=== PATIENT | female | born 1995 | race Caucasian/White ===

== ENCOUNTER 2020-05-21 12:10 | Outpatient (REF) | payer OTHER, SELFPAY ==
[2020-05-21 13:15] LABS: MANUAL DIFF FLAG NO
[2020-05-21 13:18] LABS: Basophils Absolute Auto 0.1 X10*3/uL (0.0-0.2); Basophils Percent Auto 0.6 % (0-2); Eosinophils Absolute Auto 0.3 X10*3/uL (0.0-0.4); Eosinophils Percent Auto 3.1 % (0-4); Hematocrit 38.9 % (37-47); Hemoglobin 12.4 g/dl (12.0-16.0); Imm Gran Abs Auto 0.07 X10*3/uL (0.00-0.03); Imm Gran Pct Auto 0.8 % (0.0-0.4); Lymphocytes Absolute Auto 2.3 X10*3/uL (1.2-4.9); Lymphocytes Percent Auto 26.5 % (20-40); Mean Corpuscular HGB Conc 31.9 g/dl (31.0-35.0); Mean Corpuscular Hemoglobin 28.4 pg (27.0-33.0); Mean Corpuscular Volume 89.2 fL (80-98); Monocytes Absolute Auto 0.7 X10*3/uL (0.1-1.2); Monocytes Percent Auto 7.9 % (2-11); Neutrophils Absolute Auto 5.3 X10*3/uL (2.0-8.3); Neutrophils Percent Auto 61.1 % (45-73); Platelet Count 379 X10*3/uL (160-400); Red Blood Count 4.36 X10*6/uL (4.20-5.50); Red Cell Distribution Width 12.8 % (11.0-16.0); White Blood Count 8.6 X10*3/uL (4.8-10.8)
[2020-05-21 13:42] LABS: Blood Urea Nitrogen 6 mg/dL (9-16); Calcium 9.2 mg/dL (8.4-10.2); Cholesterol 184 mg/dL; Estimated Glomerular Filt Rate > 60; Glucose Fasting 74 mg/dL (60-99); HDL Cholesterol 48 mg/dL; LDL Cholesterol Calculated 116 mg/dl; Triglycerides 104 mg/dL
[2020-05-21 13:52] LABS: Anion Gap 11 (12-20); Carbon Dioxide 29 mmol/L (22-29); Chloride 103 mmol/L (96-108); Potassium 4.4 mmol/l (3.3-5.1); Sodium 139 mmol/L (135-145)
[2020-05-21 14:34] LABS: Reflex LDLD? No
== END 2020-05-21 12:11 | disposition home or self-care (01) ==
LOC: HO.LAB 12:10
PROVIDERS: PCP Internal Medicine; Visit Provider Nurse Practitioner Family
DX: G35 Multiple sclerosis (principal)
CPT/HCPCS: 36415; 80048; 80061; 85025

== ENCOUNTER 2022-02-26 09:33 | Outpatient (REF) | payer OTHER, SELFPAY ==
[2022-02-26 15:41] LABS: CT PCR NOT DETECTED (Not Detect.); NG PCR NOT DETECTED (Not Detect.)
[2022-02-27 09:25] LABS: BV Int Neg Control Negative (Negative); BV Int Pos Control Positive (Positive)
== END 2022-02-26 09:34 | disposition home or self-care (01) ==
LOC: HO.LAB 09:33
PROVIDERS: PCP Nurse Practitioner Family; Visit Provider Advanced Practice Midwife
DX: Z01.419 Encounter for gynecological examination (general) (routine) without abnormal findings (principal); N89.8 Other specified noninflammatory disorders of vagina; Z20.2 Contact with and (suspected) exposure to infections with a predominantly sexual mode of transmission; Z72.0 Tobacco use
CPT/HCPCS: 81025; 87480; 87491; 87510; 87591; 87660; 88142

== ENCOUNTER 2022-08-12 08:21 | Outpatient (REF) | payer OTHER, SELFPAY ==
--- NOTE | ~2022-08-12 | XR_ITS ---
EXAMINATION: XR THORACIC SPINE CLINICAL INFORMATION: Pain COMPARISON: None TECHNIQUE: 3 views of the thoracic spine were obtained. FINDINGS: Bone alignment is normal. No fracture or dislocation. Right cervical rib. Normal disc spaces. Normal paraspinal soft tissues. XR/XR thoracic spine 3V IMPRESSION: Right cervical rib otherwise unremarkable exam.
[2022-08-12 08:27] LABS: MANUAL DIFF FLAG NO
[2022-08-12 08:40] LABS: Basophils Percent Auto 0.4 % (0-2); Eosinophils Absolute Auto 0.2 X10*3/uL (0.0-0.4); Eosinophils Percent Auto 2.2 % (0-4); Hematocrit 39.1 % (37.0-47.0); Hemoglobin 12.6 g/dl (12.0-16.0); Imm Gran Abs Auto 0.03 X10*3/uL (0.00-0.03); Imm Gran Pct Auto 0.4 % (0.0-0.4); Lymphocytes Absolute Auto 2.1 X10*3/uL (1.2-4.9); Lymphocytes Percent Auto 28.8 % (20-40); Mean Corpuscular HGB Conc 32.2 g/dl (31.0-35.0); Mean Corpuscular Volume 89.9 fL (80.0-98.0); Mean Platelet Volume 9.3 fL (9.4-12.3); Monocytes Absolute Auto 0.5 X10*3/uL (0.1-1.2); Monocytes Percent Auto 6.4 % (2-11); Neutrophils Absolute Auto 4.6 x10*3/uL (2.0-8.3); Neutrophils Percent Auto 61.8 % (45-73); Platelet Count 343 X10*3/uL (160-400); Red Blood Count 4.35 X10*6/uL (4.20-5.50); Red Cell Distribution Width 12.5 % (11.0-16.0); White Blood Count 7.4 X10*3/uL (4.8-10.8)
[2022-08-12 09:24] LABS: Alanine Aminotransferase 21 U/L (0-31); Albumin Level 4.2 g/dL (3.5-5.0); Alkaline Phosphatase 127 U/L (39-117); Anion Gap 11 (12-20); Aspartate Amino Transferase 15 U/L (5-31); Bilirubin Total 0.2 mg/dL (0.0-1.0); Blood Urea Nitrogen 8 mg/dL (9-16); Calcium 9.3 mg/dL (8.4-10.2); Carbon Dioxide 26 mmol/L (22-29); Chloride 105 mmol/L (96-108); Cholesterol 173 mg/dL; Estimated Glomerular Filt Rate > 60; Glucose Fasting 97 mg/dL (60-99); HDL Cholesterol 33 mg/dL; LDL Cholesterol Calculated 119 mg/dl; Potassium 4.4 mmol/L (3.3-5.1); Sodium 138 mmol/L (135-145); TSH reflex Free T4 1.59 uIU/mL (0.32-4.0); Total Protein 7.1 g/dL (6.5-8.0); Triglycerides 108 mg/dL; Vitamin D 25-OH Total 31.8 ng/mL (>30)
== END 2022-08-12 08:22 | disposition home or self-care (01) ==
LOC: HO.LAB 08:21
PROVIDERS: PCP Nurse Practitioner Family; Visit Provider Nurse Practitioner Family
DX: Z00.00 Encounter for general adult medical examination without abnormal findings (principal); M54.6 Pain in thoracic spine
CPT/HCPCS: 36415; 72072; 80053; 80061; 82306; 84443; 85025

== ENCOUNTER 2022-09-17 13:00 | Outpatient (RCR) | payer OTHER, SELFPAY ==
[2022-09-04 10:05] VITALS: BP 110/64; PULSE 74; O2SAT 98
--- NOTE | 2022-09-04 14:57 | MHC.PT.EP ---
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 Sharpe / next follow up slated for November with report of gabapentin), obesity, auditory hallucinations, anxiety, and depression (in care of psychiatry) referred to PT from Mayi Wilson PCP provider following a physical/establishing care as a new patient. Pt expresses history of R sided upper back pain which has been present since patient was in high school. Pt expressing parathesias and numbness of her R upper scapular region with report of intermittent weakness and report of both of her arms falling down by her side and giving out. Pt also reported medical history of including bradycardia, history of seizures, and report of heart murmur (which she said she failed to inform her new PCP about during her recent physical). Pt also reports history of blacking out, bouts of vision loss and overt standing weakness which makes her feel unsteady which pt she states happens on average 3x/weekly. She reports (+) history of falls related to these episodes. Pt would benefit from attending skilled PT services to address a gentle periscapular and cervical>core stabilization program to address impairments of thoracic and lower back pain. Pt expresses history of bilateral knee pain and weakness of legs being noodle legs . Pt was educated re: activity modification to ease her fatigue as she reports low thresh-hold for tasks around the house . Pt currently working wholesale parts salesperson in a [employer] shop (/Thu/Thu/Sun) and reports difficulty working her wholesale parts salesperson status due to fatigue. She expresses she lives with her sister and her boyfriend who have witnessed both episodes of her seizures and her arms giving out/falls. Pt expressed she recently applied for disability benefits due to her MS and was denied. Pt has global deconditioning, poor posture with increased thoracic kyphosis, and expressed goals of improving strength, posture, endurance, and weight loss. If in agreement please sign off on plan of care which will address her bilateral knee pain as well as her back pain during her therapy at a frequency of 2x/week x 4-6 weeks. Thank you for this referral. Pt demonstrates excellent rehab potential and is motivated for recovery. Frequency and Duration: The patient will be seen 2x/week x 4-6 weeks Short Term Goals: 1. Initiate HEP. 2. Reduce back pain by 25%. 3. Complete SLR with good strength B LE. 4. Demonstrate good functional squat with 3L3 trials. 5. Strength L>R lower trap to 4/5. (IR 3-/5). Care Home Goals: 1. I HEP. 2. Improve back pain by 75% with home program and good mechanics. 3. Pt will demonstrate good awareness of posture in regard to ADLS/IADLS. 4. Strength erector spinae to improve by one strength grade. (IR: unable to maintain erect posture in sitting). 5. Demonstrate good body mechanics for lifting 10# from floor to waist. Treatment Plan: Modalities to reduce pain, spasms and effusion. Manual therapy to restore motion and function. Therapeutic exercise to improve strength and flexibility. Neuromuscular re-education for posture and balance. Therapeutic activities to return to functional activities of daily living. Electronically signed by: Shannon Welsh, PT, DPT Please sign and return to therapist. Thank you for your referral.
== END 2023-01-01 14:55 | disposition home or self-care (01) ==
LOC: HO.PTWFD 13:00
PROVIDERS: PCP Nurse Practitioner Family; Visit Provider Nurse Practitioner Family
DX: M54.6 Pain in thoracic spine (principal)
CPT/HCPCS: 97110; 97140; 97162; 97530

== ENCOUNTER 2023-04-29 16:14 | Outpatient (AMB) | payer OTHER, SELFPAY ==
[2023-04-29 16:18] VITALS: BP 122/80; PULSE 74; O2SAT 98; BMI 38.7
--- NOTE | 2023-04-29 16:18 | MHC.PC.OV ---
Vital Signs 04/29/23 16:18 Height 5 ft 1 in Weight 205 lb BMI 38.7 BP 122/80 Blood Pressure Location Lt brachial Position Sitting Pulse 74 Pulse Source Pulse Oximeter Temp Source Skin Pulse Oximetry (%) 98 Oxygen Delivery Method Room Air Intake Visit Reasons: F/u on thoracic back pain Instrumentation Chemist Required: No Allergies methylprednisolone [From Solu-Medrol] Allergy (Unknown, Verified 04/29/23 16:49) TIGHTNESS/SWELLING OF LIPS AND THROAT penicillin V Allergy (Unknown, Verified 04/29/23 16:49) rash Penicillins [PENICILLINS] Allergy (Unknown, Verified 04/29/23 16:49) SWELLING Medication List - Last Reconciled 04/29/23 by HAO Werner bupropion HCl 300 mg PO QAM diclofenac sodium 1% (Arthritis Pain (diclofenac)) 2 grams topical QID PRN gabapentin 300 mg PO DAILY hydroxyzine HCl 50 mg PO BID multivitamin (One Daily Multivitamin tablet) 1 tab PO DAILY oxcarbazepine 300 mg PO BID oxcarbazepine 600 mg PO BID perphenazine 8 mg PO BEDTIME trazodone 100 mg PO BEDTIME Tobacco use date assessed: 04/29/23 Dental Screening Dental Screen Date: 04/29/23 Did you have a dental visit in the last 12 months?: No Did you have a dental problem in the last 6 months where you did not have access to dental care?: No HPI F/u on thoracic back pain HPI Details Patient is a 27-year-old female who presents today for a routine follow-up. Medical history significant for right-sided thoracic back pain - patient reports this have resolved, auditory hallucination, depression with anxiety, obesity, and MS-followed by Dr. Sharpe on gabapentin. Mental health conditions are followed by Psychiatry, patient is on a waiting list for therapist. Patient reports that lately she has been more depressed, low appetite and she lost weight - will check blood work. Patient also reports that she started with memory issues, she reports hard time remembering what she did 3 days ago, patient also reports that child memories are going away-she will call neurology for an appointment. Patient denies SI. She lives with her boyfriend and his sister. Patient reports intermittent left low back pain, denies injury, denies changes in bowel/bladder, no numbness or tingling, reports diclofenac cream helps. Patient denies shortness of breath or chest pain. [facility] Medical History Depression with anxiety Encounter to establish care Obesity Multiple sclerosis Surgical History EP (ectopic ) History of laparoscopic cholecystectomy Family History Father Lung cancer Stomach cancer Mother No problems noted. Daughter In good health Brother In good health Sister In good health Social History Housing: Apartment Alcohol intake: current Alcohol intake frequency: holidays/special occasions only Patient Tobacco Use Status: Current everyday Tobacco user Tobacco use type: Cigarette Cigarette Packs Per Day: 0.5 Cigarettes Per Day: 10 Years Smoked: 10 year Packs Per Year: 0 Packs per year/per ci.00 e-Cigarette/Vaping Use: Former Use Substance Use Type: Marijuana service: No Current occupational status: employed Sexual orientation: Straight/Heterosexual Gender identity: Female Cognitive needs: No Hearing needs: No Vision needs: No Questionnaire Thrive Questionnaire Date Thrive assessed: 10/29/22 AUDIT C Alcohol Use Questionnaire (AUDIT-C) 1. How often do you have a drink containing alcohol?: Never 3. How often do you have six or more drinks on one occasion?: Never Total Score: 0 Score Reviewed/Action Taken: No DILLON-7 AMB Questionnaire DILLON-7 Date DILLON - 7 assessed: 07/30/22 Source: Developed by Drs. Deejay Soriano, Miladis Sagastume, Alexandre Manzano and colleagues, with an educational fadumo from [employer]. Review of Systems Const Denies body aches, Denies chills, Denies fever(s) and Denies headache(s) Eyes Denies change in vision ENT Denies dizziness, Denies otalgia, Denies headache(s), Denies nasal discharge, Denies sinus pain and Denies sore throat Card Denies chest pain, Denies edema, Denies lightheadedness and Denies dyspnea Resp Denies cough and Denies dyspnea GI Denies constipation, Denies diarrhea, Denies nausea and Denies vomiting Denies dysuria Musc Reports back pain, Denies myalgias, Denies arthralgias and Denies joint swelling Skin/Breast Denies lesions and Denies rash Neuro Denies dizziness and Denies headache(s) Physical exam (Primary Care) Vital Signs: Last Vital Signs Pulse 74 04/29/23 16:18 BP 122/80 04/29/23 16:18 Pulse Ox 98 04/29/23 16:18 Oxygen Delivery Method Room Air 04/29/23 16:18 BMI result Body Mass Index 38.7 Tobacco/Smoking Status: Tobacco use Status Tobacco use date assessed 04/29/23 04/29/23 16:19 Patient Tobacco Use Status Current everyday Tobacco 04/29/23 16:19 Tobacco use type Cigarette 04/29/23 16:19 e-Cigarette/Vaping Use Former Use 04/29/23 16:19 Thrive Assessment: Date of Thrive Assessment Date Thrive assessed 10/29/22 04/29/23 16:19 Const General: cooperative and no acute distress Orientation/consciousness: patient oriented x3 HENMT Head: Yes normocephalic and Yes atraumatic Face and sinus: Yes sinuses nontender Mouth: oropharynx normal and moist mucous membranes Throat: Yes posterior oropharynx normal Eyes General: appearance normal, both eyes and all related structures Pupils: Equal, round and reactive pupils present Neck Neck: Yes normal visual inspection, Yes full ROM and Yes no lymphadenopathy Resp Effort & Inspection: normal respiratory effort and able to speak in complete sentences Auscultation: clear to auscultation bilaterally, no crackles, no rales, no rhonchi and no wheezes Cardio Rate: regular rate Rhythm: regular rhythm Heart sounds: S1 normal heart sound present and S2 normal heart sound present GI Auscultation: normal bowel sounds Skin General skin exam: no rashes or lesions noted Neuro General: patient oriented x3 Cranial nerves: Yes Equal, round and reactive pupils present Gait exam (Neuro): Normal gait present Extrem General: Yes full ROM and No edema Assessment and Plan Assessment & Plan (1) Auditory hallucination: Code(s): R44.0 - Auditory hallucinations Plan: Continue to follow-up with Psychiatry Dr. Miller at [facility] - continue current treatment as prescribed by Psychiatry Patient is on a waiting list for therapist Patient reports that she has crisis phone number (2) Depression with anxiety: Code(s): F41.8 - Other specified anxiety disorders Plan: Same as above (3) Obesity: Code(s): E66.9 - Obesity, unspecified Qualifiers: Obesity type: unspecified obesity type Obesity classification: adult class 3 (BMI >= 40) Serious obesity comorbidity presence: without serious comorbidity Body mass index: BMI 40.0-44.9 Qualified Code(s): E66.01 - Morbid (severe) obesity due to excess calories; Z68.41 - Body mass index [BMI] 40.0-44.9, adult; Z68.41 - Body mass index [BMI] 40.0-44.9, adult Plan: Healthy food choices and exercise as tolerated (4) Multiple sclerosis: Code(s): G35 - Multiple sclerosis Plan: Continue to follow-up with neurology Dr. Sharpe-on gabapentin (5) Low back pain: Code(s): M54.50 - Low back pain, unspecified Plan: Patient is to continue diclofenac cream p.r.n. Patient declined physical therapy referral Encouraged heat/cold packs p.r.n. Plan Patient reports that nurse comes every day to give her medications Keep appointment with PCP as scheduled or follow-up sooner as needed Orders: Orders Vitamin D 25-OH Total Today F41.8 - Other specified anxiety disorders TSH reflex Free T4 Today F41.8 - Other specified anxiety disorders Comprehensive Met. Panel Today F41.8 - Other specified anxiety disorders Complete Blood Count no Diff Today F41.8 - Other specified anxiety disorders Vitamin B12 and Folate Today F41.8 - Other specified anxiety disorders Medications: Refilled diclofenac sodium 1% (Arthritis Pain (diclofenac)) 2 grams topical QID PRN 100 grams 0RF pain M54.6 - Pain in thoracic spine Coding Level of Care Code Est Pt Level 3 (06576) Diagnoses Auditory hallucination R44.0 Depression with anxiety F41.8 Class 3 severe obesity without serious comorbidity with body mass index (BMI) of 40.0 to 44.9 in adult, unspecified obesity type E66.01; Z68.41; Z68.41 Obesity type: unspecified obesity type Obesity classification: adult class 3 (BMI >= 40) Serious obesity comorbidity presence: without serious comorbidity Body mass index: BMI 40.0-44.9 Multiple sclerosis G35 Low back pain M54.50
== END 2023-04-29 17:09 | disposition home or self-care (01) ==
PROVIDERS: PCP Nurse Practitioner Family; Visit Provider Nurse Practitioner Family
DX: R44.0 Auditory hallucinations (principal); F41.8 Other specified anxiety disorders; E66.01 Morbid (severe) obesity due to excess calories; Z68.41 Body mass index [BMI] 40.0-44.9, adult; G35 Multiple sclerosis; M54.50 Low back pain, unspecified
CPT/HCPCS: 99213